=== PATIENT | female | born 1990 | race Two or more races ===

== ENCOUNTER 2020-03-13 15:41 | Emergency (ER) | payer MEDICAID, OTHER ==
[~2020-03-13] VITALS: Ht 172.7 cm; Wt 86.4 kg
[2020-03-13 16:26] VITALS: BP 139/82
== END 2020-03-13 17:41 | disposition home or self-care (01) ==
LOC: ER 15:41
DX: S93.402A Sprain of unspecified ligament of left ankle, initial encounter (principal); X58.XXXA Exposure to other specified factors, initial encounter; Y93.89 Activity, other specified; Y92.89 Other specified places as the place of occurrence of the external cause; Y99.8 Other external cause status
CPT/HCPCS: 73610; 81025

== ENCOUNTER 2021-03-15 17:22 | Emergency (ER) | payer MEDICAID ==
[~2021-03-15] VITALS: Ht 170.2 cm; Wt 90.7 kg
[2021-03-15 17:28] VITALS: BP 117/75
[2021-03-15] MEDS ORDERED: cefTRIAXone SOD 1,000 MG VL IM ONE (21:30)
[2021-03-15] MEDS ORDERED: LIDOCAINE 1% HCL (LOCAL ANESTH.) INJ 20ML MDV ID ONE (22:00)
== END 2021-03-15 23:44 | disposition home or self-care (01) ==
LOC: ER 17:22
DX: J06.9 Acute upper respiratory infection, unspecified (principal); M79.18 Myalgia, other site; Z20.822 Contact with and (suspected) exposure to COVID-19
CPT/HCPCS: 36415; 71045; 83690; 87426; 87804; 96372; 99284; J0696; J2001

== ENCOUNTER 2024-01-27 17:55 | Observation (INO) | payer MEDICAID, OTHER ==
[~2024-01-27] VITALS: Ht 172.7 cm; Wt 80.0 kg
[2024-01-27 18:18] VITALS: BP 106/65; PULSE 104; RESP 16; O2SAT 99
[2024-01-27] MEDS ORDERED: NITR-87 PO (20:34)
[2024-01-27] MEDS ORDERED: FER325T PO (20:34)
[2024-01-27] MEDS ORDERED: ASCO500T11 PO (20:34)
[2024-01-27] MEDS ORDERED: PREN-96 PO (20:34)
[2024-01-27 21:45] LABS: Amphetamine Screen, Urine Neg (NEGATIVE); Barbiturate Scree,Urine Neg (NEGATIVE); Benzodiazephine Screen, Urine Neg (NEGATIVE); Cannabinoid Screen, Urine Neg (NEGATIVE); Cocaine Screen, Urine Neg (NEGATIVE); Opiate Scree,Urine Neg (NEGATIVE); Phencyclidine Screen, Urine Neg (NEGATIVE)
== END 2024-01-27 21:30 | disposition home or self-care (01) ==
LOC: EDBD 17:55 → ER 17:55 → LDRP 18:15 → ER 18:47
PROVIDERS: ADMIT Obstetrics & Gynecology; ATTEND Obstetrics & Gynecology
DX: O23.42 Unspecified infection of urinary tract in pregnancy, second trimester (principal); O46.92 Antepartum hemorrhage, unspecified, second trimester; O26.892 Other specified pregnancy related conditions, second trimester; R10.32 Left lower quadrant pain; R10.31 Right lower quadrant pain; O99.322 Drug use complicating pregnancy, second trimester; F19.90 Other psychoactive substance use, unspecified, uncomplicated; Z3A.23 23 weeks gestation of pregnancy; Z79.899 Other long term (current) drug therapy; Z87.891 Personal history of nicotine dependence
CPT/HCPCS: 59025; 76805; 80307; 81002; 94760; 99284; G0378

== ENCOUNTER 2024-02-01 17:05 | Observation (INO) | payer OTHER ==
[~2024-02-01] VITALS: Ht 172.7 cm; Wt 77.1 kg
[~2024-02-01 17:05] MED LIST: ASCO500T11 PO; FER325T PO; NITR-87 PO; PREN-96 PO
[2024-02-01] MEDS: cefTRIAXone 2 GM VL IV ONE (19:57)
[2024-02-01] MEDS: cefTRIAXone SOD 1,000 MG VL ONE (20:05)
[2024-02-01] MEDS: cefTRIAXone W LIDOCAINE 1 GM IM IM ONE (20:33)
[2024-02-01] MEDS: SODIUM CHLORIDE LOCK 10 ML ONE (20:48)
[2024-02-01] MEDS: LIDOCAINE 2%HCL (LOCAL ANESTH.) INJ 10ml MDV ONE (20:51)
== END 2024-02-01 21:01 | disposition home or self-care (01) ==
LOC: LDRP 17:05
PROVIDERS: ADMIT Obstetrics & Gynecology; ATTEND Obstetrics & Gynecology
DX: O23.42 Unspecified infection of urinary tract in pregnancy, second trimester (principal); O26.892 Other specified pregnancy related conditions, second trimester; N89.8 Other specified noninflammatory disorders of vagina; O99.322 Drug use complicating pregnancy, second trimester; F12.90 Cannabis use, unspecified, uncomplicated; Z3A.21 21 weeks gestation of pregnancy; Z87.891 Personal history of nicotine dependence
CPT/HCPCS: 59025; 81002; 94760; 96372; G0378; J0696; J2001